=== PATIENT | male | born 1940 | race Caucasian/White ===

== ENCOUNTER → 2020-03-15 | Outpatient (CLI) | payer MEDICARE, OTHER ==
[~2020-03-15] MED LIST: /FEXO60TA; ACET65TA; COUM1TAB17; COUM1TAB18; LEXA1TAB; MAGN500T2; PATANOL; PERC5TAB8; PERC7.5T8; PRIN10TA; ZOCO20TA
--- NOTE | 2020-03-15 16:11 | REP ---
INDICATION: OTHER SPECIFIED INTERSTITIAL PULMONARY DISEASES COMPARISON: None. TECHNIQUE: Real time paula scale and Duplex Doppler evaluation of the bilateral lower extremity arterial vasculature using linear high frequency transducer. FINDINGS: Paula scale and duplex doppler images demonstrate mild to moderate amounts of atheromatous plaquing with areas of minimal narrowing. 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 Doppler interrogation demonstrates normal triphasic arterial wave forms and velocities bilaterally. Peak systolic velocities (cm/sec) Common femoral artery: Right 82; Left 84 Profunda femoris: Right 68; Left 75 SFA (proximal): Right 93; Left 106 SFA (mid): Right 82; Left 82 SFA (distal): Right 89; Left 77 Popliteal artery: Right 56; Left 54 JANNETTE (prox.): Right 60; Left 106 Tibioperoneal trunk: Right 58; Left 52 NEEDLE LOOM TENDER (prox.): Right 41; Left 63 NEEDLE LOOM TENDER (distal): Right 56; Left 57 JANNETTE (distal): Right 67; Left 61 IMPRESSION: Atheromatous changes with areas of narrowing. 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 <Electronically signed by Mega Paula > 03/15/20 [id number]
== END ==
LOC: M RAD 14:35
PROVIDERS: ATTEND Physician Assistant
DX: I70.213 Atherosclerosis of native arteries of extremities with intermittent claudication, bilateral legs (principal)

== ENCOUNTER → 2022-03-06 | Outpatient (REF) | payer MEDICARE, OTHER | LOC: M LAB REF 15:58 | PROVIDERS: ATTEND Internal Medicine | DX: M15.9 Polyosteoarthritis, unspecified (principal) ==

== ENCOUNTER → 2023-01-15 | Outpatient (REF) | payer MEDICARE, OTHER ==
[2023-01-17 10:09] LABS: LDL DIRECT 94 mg/dL (0-99)
== END ==
LOC: M LAB REF 16:42
PROVIDERS: ATTEND Internal Medicine
DX: E78.00 Pure hypercholesterolemia, unspecified (principal)

== ENCOUNTER → 2024-01-28 | Outpatient (REF) | payer MEDICARE, OTHER | LOC: M LAB REF 16:38 | PROVIDERS: ATTEND Internal Medicine | DX: E78.00 Pure hypercholesterolemia, unspecified (principal) ==

== ENCOUNTER → 2024-07-28 | Outpatient (REF) | payer MEDICARE, OTHER ==
[2024-07-31 18:22] LABS: LDL DIRECT 120 mg/dL (<100)
== END ==
LOC: M LAB REF 15:15
PROVIDERS: ATTEND Internal Medicine
DX: E78.00 Pure hypercholesterolemia, unspecified (principal)

== ENCOUNTER → 2024-11-27 | Outpatient (REF) | payer MEDICARE, OTHER ==
[2024-11-27 13:17] LABS: APPEARANCE, URINE CLEAR (CLEAR); BACTERIA, URINE AUTO NEGATIVE (NEGATIVE); BILIRUBIN, URINE AUTO NEGATIVE (NEGATIVE); BLOOD, URINE BLOOD NEGATIVE (NEGATIVE); GLUCOSE, URINE (UA) AUTO NEGATIVE (NEGATIVE); KETONE, URINE AUTO NEGATIVE (NEGATIVE); LEUKOCYTE ESTERASE, URINE AUTO NEGATIVE (NEGATIVE); NITRITE, URINE AUTO NEGATIVE (NEGATIVE); PROTEIN, URINE AUTO NEGATIVE (NEGATIVE); RBC, URINE AUTO 0 /HPF (0-3); SPECIFIC GRAVITY URINE AUTO 1.005 (1.002-1.035); SQUAMOUS EPITHELIAL CELL UR AU 0 /HPF (0-6); UROBILINOGEN, URINE AUTO 0.2 mg/dL (0.0-2.0); WBC, URINE AUTO 0 /HPF (0-3)
== END ==
LOC: M SMT 12:52
PROVIDERS: ATTEND Nurse Practitioner Family
DX: Z87.898 Personal history of other specified conditions (principal); Z79.899 Other long term (current) drug therapy

== ENCOUNTER → 2024-12-22 | Outpatient (REF) | payer MEDICARE, OTHER | LOC: M SMT 13:13 | PROVIDERS: ATTEND Urology | DX: R97.20 Elevated prostate specific antigen [PSA] (principal); N40.2 Nodular prostate without lower urinary tract symptoms; C61 Malignant neoplasm of prostate ==

== ENCOUNTER → 2025-04-07 | Outpatient (REF) | payer MEDICARE, OTHER ==
[2025-04-10 10:11] LABS: LDL DIRECT 100 mg/dL (<100)
== END ==
LOC: M LAB REF 16:58
PROVIDERS: ATTEND Internal Medicine
DX: I67.2 Cerebral atherosclerosis (principal)